=== PATIENT | female | born 2000 | race Caucasian/White ===

== ENCOUNTER 2018-03-26 15:43 | Emergency (ER) | payer OTHER ==
[~2018-03-26] VITALS: Ht 147.3 cm; Wt 64.6 kg
[2018-03-26 16:08] VITALS: BP 124/78
--- NOTE | 2018-03-26 16:10 | NUR ---
PT WHEEL CHAIR ASSISTED BACK TO THE LOBBY
--- NOTE | 2018-03-26 16:30 | NUR ---
PT WHEELCHAIRED TO ROOM 4 IN ED BY RAYNE ESCOBAR.
--- NOTE | 2018-03-26 16:38 | NUR ---
PT DENIES N/V/D; SKIN IS INTACT, PINK/WARM/DRY, LT BIG TOE +EDEMA AND EYTHEMA; AAOX4, PERRL, WITH EVEN AND STEADY GAIT; LUNGS CLEAR BL, BREATHING UNLABORED; HR EVEN AND REGULAR, BL PERIPHERAL PULSES PRESENT; BS ACTIVE X4, NO TENDERNESS TO PALPATION, NO HEPATOSPLENOMEGALLY PALPATED, RESONANT TO PERCUSSION; PT DENIES ANY FEVER, CP, SOB, OR COUGH AT THIS TIME; PT STATES 9/10 PAIN SHARP IN LT BIG TOE AT THIS TIME; VSS; PATIENT POSITIONED FOR COMFORT; HOB ELEVATED; BEDRAILS UP X2; BED DOWN.
--- NOTE | 2018-03-26 18:43 | NUR ---
Patient discharged with v/s stable. Written and verbal after care instructions given and explained. Patient alert, oriented and verbalized understanding of instructions. Ambulatory with steady gait. All questions addressed prior to discharge. ID band removed. Patient advised to follow up with PMD. Rx of KEFLEX, MOTRIN AND BACTRIUM DS given. Patient educated on indication of medication including possible reaction and side effects. Opportunity to ask questions provided and answered.
[2018-03-26 18:44] VITALS: BP 123/76
== END 2018-03-26 18:43 | disposition home or self-care (01) ==
LOC: MED 15:43
DX: L60.0 Ingrowing nail (principal)
CPT/HCPCS: 99283